=== PATIENT | female | born 1955 | race Caucasian/White ===

== ENCOUNTER 2018-11-02 08:00 | Outpatient (CLI) | payer MEDICARE ==
[2013-02-26 00:40] VITALS: BMI 21.5
[~2018-11-02 08:00] MED LIST: ACETAMINOPHEN500 M1 PO; AUGMENTIN 500-11 TAB PO; AXID150 MG PO; BACTRIM DS TABL1 TAB PO; CARAFATE1 G PO; FELDENE 10 MG C10 MG PO; MOBIC7.5 MG PO; PERCOCET 5/3251 TA1 PO; PLENDIL5 MG PO; PRAVACHOL40 MG PO; PRILOSEC20 MG PO; PRINIVIL10 MG PO; PRINIVIL20 MG PO; VITAMIN B COMPL1 TA1 PO
== END 2018-11-02 09:00 | disposition home or self-care (01) ==
LOC: D.MAMMO 08:00
PROVIDERS: ATTEND Family Medicine
DX: Z12.31 Encounter for screening mammogram for malignant neoplasm of breast (principal)